=== PATIENT | male | born 1985 | race Caucasian/White ===

== ENCOUNTER 2018-01-28 08:16 | Day surgery (SDC) | payer OTHER ==
--- NOTE | 2018-01-26 16:45 | HP ---
CC: Dr. Sheikh; Dr. Linnette Cortez* DATE OF ADMISSION: 01/28/2018. This patient is scheduled for Same Day Surgery admission by Dr. Sheikh. DATE OF PREOPERATIVE HISTORY AND PHYSICAL EXAMINATION: 01/26/2018. ATTENDING SURGEON: Dr. Colby Sheikh* (dictated by Harper Maldonado NP). CHIEF COMPLAINT: Recurrent abscesses in the right axilla. HISTORY OF PRESENT ILLNESS: The patient is a 32-year-old male referred to Dr. Sheikh from Dr. Linnette Cortez for evaluation of recurrent right axillary hidradenitis. The patient states that he has had abscesses recurring in the right axilla for a couple of years. He reports at least seven or eight flare- ups that always swell up and are painful. He has had it drained in the past and takes antibiotics and eventually it subsides, but ultimately it recurs. The current flare-up of the right axilla started almost two weeks ago and he was treated with antibiotics from Dr. Cortez. It is not draining at this time and he is not running fevers at home. He has multiple comorbidities of obesity , type 2 diabetes, hypertension, sleep apnea treated with CPAP, gastroesophageal reflux, and gastroparesis. He is disabled since 2014 from a work related injury to this spine and has a spinal stimulator. Dr. Sheikh examined the patient and the findings are consistent with chronic recurrent hidradenitis in the right axilla and Dr. Sheikh offered surgical excision and the patient is in agreement. Dr. Sheikh discussed the nature of the surgical procedure, the rationale for the procedure, the alternative treatments, the relevant risks and benefits, and today I reviewed the expected postoperative care and recovery. The patient has had a chance to ask questions and stated that he understands the information and is satisfied with the answers given to his questions. He will sign surgical consent on the day of surgery. PAST MEDICAL HISTORY: Significant for type 2 diabetes, sleep apnea treated with CPAP, morbid obesity, hypertension, asthma, spinal injury with spinal stimulator in place, gastroesophageal reflux disease, gastroparesis, possible Saenz's esophagus, gastritis, and pancreatitis on two separate occasions. PAST SURGICAL HISTORY: Tonsillectomy and adenoidectomy, ear tubes, sinus surgery, excision of a benign right neck node, and insertion of the spinal stimulator. MEDICATIONS: 1. Percocet 5/325 one to two tablets every 4 to 6 hours as needed for pain. This is prescribed through the [facility] and typically he takes one tablet every 12 hours. 2. Methocarbamol 500 mg one p.o. b.i.d. prn back spasm. 3. Aspirin 81 mg p.o. daily. 4. Zofran 4 mg p.o. b.i.d. prn nausea. 5. Promethazine 25 mg insert one rectal suppository q.i.d. prn nausea. 6. Triamterene Hydrochlorothiazide 37.5/25 mg one p.o. daily. 7. Ventolin inhaler two puffs q.i.d. prn. 8. Docusate 100 mg two tablets at bedtime. 9. Pantoprazole 40 mg p.o. daily. 10. Metformin 1,000 mg one tablet b.i.d. and I have instructed the patient to hold that on the morning of surgery. 11. Lisinopril 20 mg p.o. daily. 12. Carafate 1 gm every 6 hours and prior to meals. 13. Bactrim DS 800/160 mg one tablet p.o. b.i.d. ALLERGIES: No known drug allergies. He states that he is ALLERGIC TO FEATHERS. FAMILY HISTORY: No known anesthesia complications, bleeding tendencies, or clotting disorders. Both parents are diabetic and have hypertension. SOCIAL HISTORY: He is . He is on workers' comp. He quit smoking two months ago after smoking less than one pack per day since age 11. He denies the use of alcohol or other substances. REVIEW OF SYSTEMS: Constitutional: No fevers, chills, or excessive fatigue. Endocrine: Type 2 diabetes, fingerstick this morning was 171, he checks it four times a day and it is typically in the 170 to 200 range. No known thyroid disease. Hematologic: No easy bruising or bleeding. No previous blood transfusions. Respiratory: History of asthma. No recent flare-ups. No chronic cough or wheezing. Cardiovascular: He is treated for hypertension. No anginal chest pain or palpitations. Gastrointestinal: History of GERD, gastritis, gastroparesis, Saenz's esophagus, and pancreatitis. No current nausea, vomiting, diarrhea, GI bleeding, or constipation. Genitourinary: No dysuria. Musculoskeletal: Chronic back pain and he has a spinal stimulator on the left side of his spine. Skin: Rash in the abdominal pannus consistent with fungal appearing rash. No other skin changes. Neurologic: No headache or blurred vision. No areas of focal weakness. Normal gait. General: With previous anesthesia, he was told that he was very rowdy when he was waking up. He denies any history of deep vein thrombosis or pulmonary embolism. He has sleep apnea and uses CPAP. PHYSICAL EXAMINATION GENERAL: The patient is a 32-year-old morbidly obese male in no acute distress. VITAL SIGNS: Height 72 inches, weight 315 pounds, body mass index 42.7. Blood pressure 162/90, pulse 92 and regular, respiratory rate 20, temperature 99.6. SKIN: Warm, dry, intact. Right axillary region with scarring and induration. No fluctuance or erythema. Mildly tender consistent with chronic recurrent hidradenitis. HEENT: Benign. NECK: Supple. No cervical lymphadenopathy. BACK: Spinal stimulator on the left. LUNGS: Breath sounds bilaterally clear and equal. HEART: Regular rate and rhythm, no murmurs or rubs appreciated. ABDOMEN: Obese, soft, nondistended, nontender throughout. There is a fungal appearing rash in the pannus. EXTREMITIES: Warm without edema or skin ulceration. GENITALIA: Exam deferred. RECTAL: Exam deferred. NEUROLOGIC: Alert and oriented times three. Steady gait. IMPRESSION: Right axillary hidradenitis suppurativa. PLAN: Same Day Surgery admission to Dr. Sheikh's service on , 01/28/2018 for excision of right axillary hidradenitis. LAVON MALDONADO, SUGAR [id number]/[facility] #: [id number] [facility]ITALKris
[~2018-01-28 08:16] MED LIST: Buffered Lidocaine 0.9% SYRIN* 5 ML/SYR SYRINGE INTRADERM ONE; Buffered Lidocaine 0.9% SYRIN* 5 ML/SYR SYRINGE ONE; Famotidine IV* 10 MG/ML 2 ML (20 mg) IV ONE; Famotidine IV* 10 MG/ML 2 ML (20 mg) ONE; Metoclopramide TAB* 10 MG ONE; Metoclopramide TAB* 10 MG PO ONE; ceFAZolin 1 GM in Dextrose (*) 1 GM/50 ML BAG IVPB ONE; ceFAZolin 2 GM PREMIX (*) 2 GM/50 ML BAG IVPB ONE
[2018-01-28] MEDS ORDERED: Insulin REGULAR(*) 1 UNITS UNIT ONE (09:08)
[2018-01-28] MEDS ORDERED: Dexamethasone IV* 4 MG/ML 1 ML (4 MG) ONE (09:14)
[2018-01-28] MEDS ORDERED: Cisatracurium* 2 MG/ML MDV 5 ML ONE (09:14)
[2018-01-28] MEDS ORDERED: Midazolam* 1 MG/ML 5 ML VIAL (5 MG) ONE (09:14)
[2018-01-28] MEDS ORDERED: Propofol* 10 MG/ML 20 ML BTL IV PUSH ONE ×2 (09:14→10:25)
[2018-01-28] MEDS ORDERED: fentaNYL* 50 MCG/ML 5 ML VIAL (250 MCG VIAL) ONE (09:14)
[2018-01-28] MEDS ORDERED: Lidocaine 2% PF * 5 ML VIAL ONE (09:14)
[2018-01-28] MEDS ORDERED: Ketorolac INJ* 30 MG/ML 1 ML VIAL ONE (09:15)
[2018-01-28] MEDS ORDERED: Bupivacaine 0.25% SDV* 30 ML ONE (09:38)
[2018-01-28] MEDS ORDERED: Ondansetron ODT TAB* 4 MG ONE (09:49)
[2018-01-28] MEDS ORDERED: Lidocain 1% EPI 1:100,000 * 30 ML MDV ONE (10:15)
[2018-01-28] MEDS ORDERED: Bupivacaine 0.5% PF 10 ML VIAL INJ ONE (10:15)
[2018-01-28] MEDS ORDERED: Levalbuterol HFA INHALER* 1 PUFF MDI ONE (10:25)
[2018-01-28 12:06] VITALS: BP 104/77
--- NOTE | 2018-01-29 02:11 | OP ---
CC: Dr. Linnette Cortez * DATE OF OPERATION: 01/28/18 - [facility] DATE OF : 81 SURGEON: Colby Sheikh MD BALANCE WHEEL FACER: BLANCO Lewis ANESTHESIOLOGIST: Dr. Xiao. ANESTHESIA: General anesthetic, local infiltration PRE-OP DIAGNOSIS: Chronic right axillary hidradenitis. POST-OP DIAGNOSIS: Chronic right axillary hidradenitis. OPERATIVE PROCEDURE: Excision of right axillary hidradenitis DESCRIPTION OF PROCEDURE: The patient was supine on the operative table. After adequate general anesthetic, compression stockings, Faustino Hugger warmer and intravenous antibiotics, the right axilla was clipped and prepped with antiseptic, draped in a sterile fashion. Local infiltrative anesthesia was administered. An elliptical incision approximately 3 x 6 cm was created, and the skin and subcutaneum, and all the inflammatory area was excised, and closure was accomplished using 3-0 Vicryl and 3-0 Prolene after irrigating the incision and sterile dressing was placed. He tolerated the procedure well, was brought to recovery in good condition. There are no complications. No drains. Pathologic specimen is excision, right axillary hidradenitis. [id number]/[facility] #: [id number] MTDD
== END 2018-01-28 12:34 | disposition home or self-care (01) ==
LOC: OR 08:16
PROVIDERS: ATTEND Surgery
DX: L73.2 Hidradenitis suppurativa (principal); E11.8 Type 2 diabetes mellitus with unspecified complications; Z79.84 Long term (current) use of oral hypoglycemic drugs; Z87.891 Personal history of nicotine dependence; G47.33 Obstructive sleep apnea (adult) (pediatric); E66.01 Morbid (severe) obesity due to excess calories; J45.909 Unspecified asthma, uncomplicated; K21.9 Gastro-esophageal reflux disease without esophagitis; M54.9 Dorsalgia, unspecified; M54.2 Cervicalgia
CPT/HCPCS: 88305; A9270-GY; J0690; J1100; J1885; J2250; J2704; J3010